=== PATIENT | male | born 1945 | race Caucasian/White ===

== ENCOUNTER 2019-12-01 09:54 | Observation (INO) ==
[2019-12-01] MEDS ORDERED: HYDROmorphone 2 MG/1 ML VIAL IV STA (10:00)
[2019-12-01] MEDS ORDERED: ONDANSETRON 4 MG/2 ML VIAL IV STA (10:00)
[2019-12-01] MEDS ORDERED: DIPH/TET/ACEL PERT BOOSTER VACCINE 0.5 ML VIAL IM ONE (10:00)
[2019-12-01 10:40] LABS: Basophils # 0.1 10*3/uL (0.0-0.2); Basophils % 1.1 % (0.0-0.8); Eosinophils # 0.5 10*3/uL (0.0-0.87); Eosinophils % 8.6 % (0.00-10.9); Hematocrit 42.6 VOL% (42.0-52.0); Hemoglobin 14.2 GM/DL (14.0-18.0); Immature Granulocytes % 0.3 %; Immature Granulocytes Absolute 0.02 #; Lymphocytes # 1.5 10*3/uL (1.4-4.0); Lymphocytes % 24.2 % (21.2-54.2); Mean Corpuscular HGB Conc 33.3 GM/DL (32-36); Mean Corpuscular Volume 95.7 FL (87-102); Mean Platelet Volume 8.6 FL (9.6-12.0); Monocytes % 7.2 % (1.7-12.7); Neutrophils % 58.6 % (38.7-73.9); Platelet Count 204 T/CUMM (130-400); Red Blood Count 4.45 MC/CUMM (3.8-5.5); Red Cell Distribution Width 13.5 % (9.3-17.3); White Blood Count 6.2 T/CUMM (4-12)
[2019-12-01] MEDS ORDERED: BACITRACIN OINT 0.9 GM PACK TOP ONE ×2 (10:57→13:46)
[2019-12-01] MEDS ORDERED: BUPIVACAINE MPF 0.25% 30 ML VIAL ONE (10:58)
[2019-12-01 11:04] LABS: Albumin 3.2 G/DL (3.4-5.0); Bilirubin,Total 0.8 MG/DL (0.2-1.0); Calcium 8.3 MG/DL (8.5-10.1); Osmolality,Calculated 280.4 MOS/KG (273-304); Total Protein 6.8 G/DL (6.4-8.3)
[2019-12-01] MEDS ORDERED: ceFAZolin 1,000 MG VIAL ONE (11:43)
[2019-12-01] MEDS ORDERED: GENTAMICIN 80 MG/2 ML VIAL ONE (11:49)
[2019-12-01] MEDS ORDERED: MAGNESIUM HYDROXIDE SUSP 30 ML UDCUP PO PRN (14:07)
[2019-12-01] MEDS ORDERED: diphenhydrAMINE CAP 25 MG CAPSULE PO PRN (14:07)
[2019-12-01] MEDS ORDERED: MORPHINE 4 MG/1 ML VIAL IV PRN ×2 (14:07)
[2019-12-01] MEDS ORDERED: ONDANSETRON 4 MG/2 ML VIAL IV PRN (14:07)
[2019-12-01] MEDS ORDERED: ePHEDrine 50 MG/ML VIAL ONE (14:19)
[2019-12-01] MEDS ORDERED: MIDAZOLAM 2 MG/2 ML VIAL ONE (14:21)
[2019-12-01] MEDS ORDERED: LIDOCAINE 2% 5 ML VIAL ONE (14:21)
[2019-12-01] MEDS ORDERED: propofoL 200 MG/20 ML VIAL IV ONE (14:21)
[2019-12-01] MEDS ORDERED: SEVOFLURANE 1 UNIT/15 MINUTE INH ONE (14:21)
[2019-12-01] MEDS ORDERED: fentaNYL 100 MCG/2 ML VIAL ONE (14:22)
[2019-12-01] MEDS ORDERED: GLYCOPYRROLATE 0.4 MG/2 ML VIAL ONE (14:22)
[2019-12-01] MEDS ORDERED: LACTATED RINGERS 1,000 ML IV ONE (14:22)
[2019-12-01] MEDS ORDERED: PHENYLEPHRINE 1 MG/10 ML SYRINGE IV ONE (14:22)
[2019-12-01] MEDS ORDERED: SUCCINYLCHOLINE 200 MG/10 ML VIAL ONE (14:22)
[2019-12-01] MEDS ORDERED: ROCURONIUM 100 MG/10 ML VIAL IV ONE (14:22)
[2019-12-01] MEDS ORDERED: LACTATED RINGERS 1,000 ML IV SCH (14:30)
[2019-12-01] MEDS: ceFAZolin 1,000 MG in SYRINGE 1 EACH IV SCH (20:41)
[2019-12-02] MEDS: ceFAZolin 1,000 MG in SYRINGE 1 EACH IV SCH (04:46)
[2019-12-02] MEDS ORDERED: lisinopriL 10 MG TABLET PO SCH (09:00)
[2019-12-02] MEDS ORDERED: CHOLECALCIFEROL 5,000 UNIT TABLET PO SCH (09:00)
[2019-12-02] MEDS ORDERED: amLODIPine 5 MG TABLET PO SCH (09:00)
[2019-12-02] MEDS ORDERED: SIMVASTATIN 10 MG TABLET PO SCH (09:00)
[2019-12-02] MEDS ORDERED: ASPIRIN EC 81 MG TABLET PO SCH (09:00)
[2019-12-02] MEDS ORDERED: CYANOCOBALAMIN 500 MCG TABLET PO SCH (09:00)
[2019-12-02 11:11] VITALS: BP 152/75
== END 2019-12-02 16:00 | disposition home or self-care (01) ==
LOC: EDUNIT# → EDBD → N.ED 09:54 → N.EDINP 09:54 → N.3E 14:52
PROVIDERS: ADMIT Orthopaedic Surgery; ATTEND Orthopaedic Surgery

== ENCOUNTER 2022-05-11 15:39 | Observation (INO) ==
[2022-05-11] MEDS ORDERED: SODIUM CHLORIDE 0.9% 1,000 ML IV STA (19:48)
[2022-05-11] MEDS ORDERED: ONDANSETRON 4 MG/2 ML VIAL IV STA (19:48)
[2022-05-11] MEDS ORDERED: hydrALAZINE 20 MG/1 ML VIAL IV STA (19:48)
[2022-05-11] MEDS ORDERED: DICYCLOMINE 20 MG/2 ML AMP IM ONE (19:48)
[2022-05-11 20:31] LABS: Basophils % 0.2 % (0.0-0.8); Hematocrit 43.7 VOL% (42.0-52.0); Hemoglobin 14.2 GM/DL (14.0-18.0); Immature Granulocytes % 0.5 %; Immature Granulocytes Absolute 0.09 #; Lymphocytes # 0.6 10*3/uL (1.4-4.0); Lymphocytes % 3.6 % (21.2-54.2); Mean Corpuscular HGB Conc 32.5 GM/DL (32-36); Mean Corpuscular Volume 89.7 FL (87-102); Mean Platelet Volume 8.7 FL (9.6-12.0); Monocytes # 0.8 10*3/uL (0.11-0.8); Monocytes % 4.4 % (1.7-12.7); Neutrophils % 91.3 % (38.7-73.9); Platelet Count 247 T/CUMM (130-400); Red Blood Count 4.87 MC/CUMM (3.8-5.5); Red Cell Distribution Width 14.5 % (9.3-17.3); White Blood Count 17.18 T/CUMM (4-12)
[2022-05-11 20:50] LABS: Albumin 3.8 G/DL (3.4-5.0); Bilirubin,Total 0.8 MG/DL (0.20-1.00); Calcium 9.3 MG/DL (8.5-10.1); Osmolality,Calculated 282.4 MOS/KG (273-304); Potassium 4.3 MMOL/L (3.5-5.1); Total Protein 7.3 G/DL (6.4-8.2)
[2022-05-11 20:55] LABS: Band Neutrophils 2 % (0-10); Lymphocytes 4 % (20-55); Platelet Estimate Adequate; Total Cells Counted 100
[2022-05-11 21:39] LABS: Mucus,Urine Occasional /LPF (Occasional); RBC,Urine 5 /HPF (0-4)
[2022-05-11 21:43] LABS: Bilirubin,Urine Negative (Negative); Blood, Urine Negative (Negative); Glucose,Urine (UA) Negative (Negative); Ketones,Urine 80 mg/dL (Negative); Nitrite,Urine Negative (Negative); Protein,Urine Negative (Negative); Urine Appearance Clear (Clear); Urine Color Yellow (Yellow); Urine Specific Gravity 1.025 (1.001-1.035); Urine Urobilinogen 0.2 eU/dL (<2.0); Urine pH 5.5 (4.5-8.0)
[2022-05-11] MEDS ORDERED: ONDANSETRON 4 MG/2 ML VIAL IV PRN (22:21)
[2022-05-11] MEDS ORDERED: LACTULOSE 20 GM/30 ML UDCUP PO PRN (22:21)
[2022-05-11] MEDS ORDERED: SODIUM PHOSPHATE ENEMA 133 ML BOTTLE RECTAL PRN (22:21)
[2022-05-11] MEDS: SODIUM CHLORIDE 0.9% 1,000 ML IV SCH (23:17)
[2022-05-12] MEDS: ACETAMINOPHEN 325 MG TABLET PO PRN ×3 (00:03→11:43)
[2022-05-12] MEDS: SODIUM CHLORIDE 0.9% 1,000 ML IV SCH ×3 (06:07→21:44)
[2022-05-12 06:30] LABS: Basophils % 0.2 % (0.0-0.8); Hematocrit 42.1 VOL% (42.0-52.0); Hemoglobin 13.4 GM/DL (14.0-18.0); Immature Granulocytes % 0.7 %; Immature Granulocytes Absolute 0.14 #; Lymphocytes # 1.3 10*3/uL (1.4-4.0); Lymphocytes % 6.5 % (21.2-54.2); Mean Corpuscular HGB Conc 31.8 GM/DL (32-36); Mean Corpuscular Volume 91.1 FL (87-102); Mean Platelet Volume 8.7 FL (9.6-12.0); Monocytes % 5.1 % (1.7-12.7); Neutrophils % 87.5 % (38.7-73.9); Platelet Count 216 T/CUMM (130-400); Red Blood Count 4.62 MC/CUMM (3.8-5.5); Red Cell Distribution Width 14.6 % (9.3-17.3); White Blood Count 19.89 T/CUMM (4-12)
[2022-05-12 06:50] LABS: Albumin 3.2 G/DL (3.4-5.0); Bilirubin,Total 1.1 MG/DL (0.20-1.00); Calcium 8.8 MG/DL (8.5-10.1); Osmolality,Calculated 277.5 MOS/KG (273-304)
[2022-05-12] MEDS: PANTOPRAZOLE 40 MG VIAL IV SCH (09:11)
[2022-05-12] MEDS ORDERED: HYDROCORTISONE 2.5% CREAM 30 GM TUBE TOP PRN (11:39)
[2022-05-12] MEDS: PIPERACILLIN/TAZOBACTAM 3,375 MG in SODIUM CHLORIDE 0.9% 100 ML IV SCH ×2 (16:03→21:38)
[2022-05-12] MEDS: carvediloL 3.125 MG TABLET PO SCH (21:38)
[2022-05-13] MEDS: SODIUM CHLORIDE 0.9% 1,000 ML IV SCH (05:12)
[2022-05-13 06:06] LABS: Basophils # 0.1 10*3/uL (0.0-0.2); Basophils % 0.3 % (0.0-0.8); Eosinophils # 0.1 10*3/uL (0.0-0.87); Eosinophils % 0.5 % (0.00-10.9); Hematocrit 36.3 VOL% (42.0-52.0); Hemoglobin 11.8 GM/DL (14.0-18.0); Immature Granulocytes % 0.6 %; Lymphocytes # 1.8 10*3/uL (1.4-4.0); Lymphocytes % 10.7 % (21.2-54.2); Mean Corpuscular HGB Conc 32.5 GM/DL (32-36); Mean Corpuscular Volume 91.7 FL (87-102); Mean Platelet Volume 9.1 FL (9.6-12.0); Monocytes # 1.1 10*3/uL (0.11-0.8); Monocytes % 6.2 % (1.7-12.7); Neutrophils % 81.7 % (38.7-73.9); Platelet Count 183 T/CUMM (130-400); Red Blood Count 3.96 MC/CUMM (3.8-5.5); Red Cell Distribution Width 15.1 % (9.3-17.3); White Blood Count 16.85 T/CUMM (4-12)
[2022-05-13 06:33] LABS: Albumin 2.5 G/DL (3.4-5.0); Bilirubin,Total 1.3 MG/DL (0.20-1.00); Calcium 8.2 MG/DL (8.5-10.1); Potassium 3.7 MMOL/L (3.5-5.1); Total Protein 5.9 G/DL (6.4-8.2)
[2022-05-13] MEDS: PIPERACILLIN/TAZOBACTAM 3,375 MG in SODIUM CHLORIDE 0.9% 100 ML IV SCH ×3 (09:10→21:24)
[2022-05-13] MEDS: PANTOPRAZOLE 40 MG VIAL IV SCH (09:10)
[2022-05-13] MEDS: carvediloL 3.125 MG TABLET PO SCH ×2 (09:11→21:31)
[2022-05-13] MEDS: OLMESARTAN 5 MG TABLET PO SCH (09:11)
[2022-05-13] MEDS: DOCUSATE SODIUM 100 MG CAPSULE PO SCH ×2 (09:11→21:24)
[2022-05-13] MEDS: CLOPIDOGREL 75 MG TABLET PO SCH (09:11)
[2022-05-13] MEDS ORDERED: SIMVASTATIN 10 MG TABLET PO SCH (21:00)
[2022-05-13] MEDS: ACETAMINOPHEN 325 MG TABLET PO PRN (22:45)
[2022-05-14] MEDS: SODIUM CHLORIDE 0.9% 1,000 ML IV SCH (05:50)
[2022-05-14 06:12] LABS: Basophils # 0.1 10*3/uL (0.0-0.2); Basophils % 0.7 % (0.0-0.8); Eosinophils # 0.5 10*3/uL (0.0-0.87); Eosinophils % 5.2 % (0.00-10.9); Hematocrit 34.9 VOL% (42.0-52.0); Hemoglobin 11.2 GM/DL (14.0-18.0); Immature Granulocytes % 0.7 %; Immature Granulocytes Absolute 0.07 #; Lymphocytes # 1.5 10*3/uL (1.4-4.0); Lymphocytes % 15.2 % (21.2-54.2); Mean Corpuscular HGB Conc 32.1 GM/DL (32-36); Mean Corpuscular Volume 91.1 FL (87-102); Mean Platelet Volume 8.7 FL (9.6-12.0); Monocytes # 0.6 10*3/uL (0.11-0.8); Monocytes % 6.3 % (1.7-12.7); Neutrophils % 71.9 % (38.7-73.9); Platelet Count 166 T/CUMM (130-400); Red Blood Count 3.83 MC/CUMM (3.8-5.5); Red Cell Distribution Width 15.4 % (9.3-17.3); White Blood Count 10.01 T/CUMM (4-12)
[2022-05-14 06:47] LABS: Osmolality,Calculated 287.7 MOS/KG (273-304); Potassium 3.6 MMOL/L (3.5-5.1)
[2022-05-14 08:01] VITALS: BP 144/86
[2022-05-14] MEDS: CLOPIDOGREL 75 MG TABLET PO SCH (09:32)
[2022-05-14] MEDS: PANTOPRAZOLE 40 MG VIAL IV SCH (09:32)
[2022-05-14] MEDS: carvediloL 3.125 MG TABLET PO SCH (09:32)
[2022-05-14] MEDS: DOCUSATE SODIUM 100 MG CAPSULE PO SCH (09:32)
[2022-05-14] MEDS: OLMESARTAN 5 MG TABLET PO SCH (09:32)
[2022-05-14] MEDS: PIPERACILLIN/TAZOBACTAM 3,375 MG in SODIUM CHLORIDE 0.9% 100 ML IV SCH (09:46)
== END 2022-05-14 10:26 | disposition home or self-care (01) ==
LOC: N.EDINP 15:39 → N.ED 15:39 → N.EDINP 23:20 → N.2W 23:36
PROVIDERS: ADMIT Family Medicine; ATTEND Family Medicine